=== PATIENT | male | born 1950 | race Hispanic/Latino ===

== ENCOUNTER 2018-03-14 01:43 | Emergency (ER) | payer MEDICARE, OTHER ==
[2018-03-14 01:44] VITALS: BMI 28.0
[2018-03-14 01:47] VITALS: TEMP 98.8
--- NOTE | 2018-03-14 03:40 | C.PDOC ---
History Of Present Illness 67 year old male is brought to the ED by ambulance for evaluation of alcohol intoxication. Patient had a verbal argument with his prior to arrival, which prompted her to call ambulance. Patient denies suicidal/homicidal ideation and has no physical complaints at this time. Time Seen by Provider: 03/14/18 01:57 Chief Complaint (Nursing): Substance Abuse History Per: Patient, EMS History/Exam Limitations: intoxication Onset/Duration Of Symptoms: Hrs Current Symptoms Are (Timing): Still Present Suicide/Self Injury Attempted (Context): None Modifying Factor(s): Alcohol Associated Symptoms: denies: Suicidal Thoughts, Suicidal Plan Involuntary Hold By: None Recent travel outside of the [place]: No Additional History Per: Patient, EMS Past Medical History Reviewed: Historical Data, Nursing Documentation, Vital Signs Vital Signs: Last Vital Signs Temp 98.8 F 03/14/18 01:45 Pulse 84 03/14/18 01:45 Resp 16 03/14/18 01:45 BP 159/86 H 03/14/18 01:45 Pulse Ox 96 03/14/18 03:44 - Medical History PMH: Depression, HTN, Post Traumatic Stress Disorder (from [place]), Seizures ( ETOH related) Denies: Diabetes, Hepatitis, HIV, Chronic Kidney Disease, Sexually Transmitted Disease Surgical History: No Surg Hx - [facility] DETOXIFICATION SERVICES FOR SUBSTANCE ABUSE TREATMENT (09/02/16) 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, PSYCHOEDUCATION (09/02/16) INJECT TRANQUILIZER (06/02/14) INJECT/INFUSE NEC (06/02/14) Family History: States: Unknown Family Hx - Social History Hx Tobacco Use: (Unobtainable) Hx Alcohol Use: Yes Hx Substance Use: No (pt denies) - Immunization History Hx Tetanus Toxoid Vaccination: No (Unknown) Hx Influenza Vaccination: No (Unknown) Hx Pneumococcal Vaccination: No (Unknown) Review Of Systems Psych: Positive for: Other (EtOH intoxication) Physical Exam - Physical Exam Appears: Non-toxic, No Acute Distress, Other (visibly intoxicated ) Skin: Normal Color, Warm, Dry Head: Atraumatic, Normacephalic Eye(s): bilateral: Normal Inspection Oral Mucosa: Moist, Other (alcohol on breath ) Teeth: Edentulous (partially ) Neck: Supple Chest: Symmetrical, No Deformity, No Tenderness Cardiovascular: Rhythm Regular, No Murmur Respiratory: No Rales, No Rhonchi, No Wheezing Extremity: Normal ROM, Capillary Refill (less than 2 seconds ) Neurological/Psych: No Normal Speech (mildly slurred ), Other (arousble to touch and verbal stimuli ) ED Course And Treatment O2 Sat by Pulse Oximetry: 96 (on RA) Pulse Ox Interpretation: Normal Medical Decision Making Medical Decision Making: pt is easily aroused from sleep; speech now clear and has steady gait. d/c home Disposition Counseled Patient/Family Regarding: Diagnosis - Disposition Referrals: [facility] [Outside] Disposition: HOME/ ROUTINE Disposition Time: 05:49 Condition: GOOD Additional Instructions: Please consider going to detox program for alcohol. Follow up with your pmd. 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 - Scribe Statement The provider has reviewed the documentation as recorded by the Scribe (Bibi Webb) All medical record entries made by the Scribe were at my direction and personally dictated by me. I have reviewed the chart and agree that the record accurately reflects my personal performance of the history, physical exam, medical decision making, and the department course for this patient. I have also personally directed, reviewed, and agree with the discharge instructions and disposition.
[2018-03-14 05:51] VITALS: BP 148/76; PULSE 78; RESP 12; O2SAT 96
== END 2018-03-14 06:16 | disposition home or self-care (01) ==
LOC: C.ER 01:43
DX: F10.129 Alcohol abuse with intoxication, unspecified (principal); Y90.9 Presence of alcohol in blood, level not specified